=== PATIENT | male | born 1945 | race Caucasian/White ===

== ENCOUNTER → 2021-06-13 | Outpatient (CLI) | payer MEDICARE ==
[~2021-06-13] MED LIST: BILB100C PO; FENO48TA16 PO; FURO40TA4 PO; GABA300C18 PO; HYDR-2761 PO; INSU100V37 SQ; IRON PO; MECO10005 PO; METO25TA4 PO; MONT10TA49 PO; OMEG-152 PO; TAMS0.4C97 PO; TRAM50TA PO
[2021-06-13 14:02] LABS: HEMATOCRIT 38.4 % (39.0-53.0); HEMOGLOBIN 12.5 g/dL (13.0-17.5); RED BLOOD COUNT 4.23 x10^6/uL (4.30-5.70); RED CELL DISTRIBUTION WIDTH 14.8 % (11.5-14.5); WHITE BLOOD COUNT 6.1 x10^3/uL (4.0-11.0)
[2021-06-13 14:18] LABS: ALBUMIN/GLOBULIN RATIO 0.9 (1.0-1.7); CALCIUM 8.5 mg/dL (8.5-10.1); CREATININE 1.7 mg/dL (0.7-1.3); GFR 39.3; POTASSIUM 4.8 mmol/L (3.5-5.1); TOTAL BILIRUBIN 0.4 mg/dL (0.2-1.0); TOTAL PROTEIN 6.2 g/dL (6.4-8.2)
[2021-06-14 02:09] LABS: HEMOGLOBIN A1C 7.9 % (4.8-5.6)
== END ==
LOC: SURGPAT 12:28
PROVIDERS: ATTEND Neurological Surgery
DX: Z01.818 Encounter for other preprocedural examination (principal); M48.062 Spinal stenosis, lumbar region with neurogenic claudication; M51.16 Intervertebral disc disorders with radiculopathy, lumbar region
CPT/HCPCS: 36415; 80053; 83036; 85027; 87641

== ENCOUNTER 2021-06-19 10:13 | Observation (INO) | payer MEDICARE ==
[2021-06-13 13:18] VITALS: BP 165/70
[~2021-06-19] VITALS: Ht 172.7 cm; Wt 100.0 kg
[2021-06-19] VITALS (10 sets, daily range): BP systolic 120–144; BP diastolic 69–83
[~2021-06-19 10:13] MED LIST changes: -HYDR-2761 PO; +HYDROmorphone 2 MG/ML VIAL IVP PRN; +IV RINGERS,LACTATED 1000ML 1,000 ML IV SCH; +LIDOCAINE 2% PF 5 ML VIAL. ONE; +PHENYLEPHRINE 10 MG/ML VIAL. ONE; +PROCHLORPERAZINE 10 MG/2 ML VIAL. IVP PRN; +PROPOFOL 10 MG/ML (20ML) VIAL. IV ONE; +PROPOFOL 50 ML IV ONE; +REMIFENTANIL 2 MG VIAL. IV ONE; +ROCURONIUM 50 MG/5 ML VIAL. ONE; +SUCCINYLCHOLINE 200 MG/10 ML VIAL. ONE; +ceFAZolin SODIUM 1 GM in IV NORMAL SALINE 1000ML BAG 1,000 ML IRR ONE; +fentaNYL PF VIAL 100 MCG/2 ML VIAL IVP PRN; +fentaNYL PF VIAL 100 MCG/2 ML VIAL ONE
[2021-06-19] MEDS ORDERED: GELATIN SPONGE SIZE 100. ONE (10:15)
[2021-06-19] MEDS ORDERED: THROMBIN TOPICAL 20,000 UNIT SPRAY.SYRN KIT TP ONE (10:15)
[2021-06-19] MEDS ORDERED: KETOROLAC 60 MG/2 ML VIAL. ONE (10:15)
[2021-06-19] MEDS ORDERED: BUPIVACAINE-EPI 0.5% 30 ML VIAL KIT. ONE (10:15)
[2021-06-19] MEDS ORDERED: INSULIN LISPRO 100 UNIT/ML 3ML VIAL for OP,RR ONLY. SQ PRN (11:00)
[2021-06-19 11:07] LABS: BASO % 1 % (0-3); EOS # 0.4 x10^3/uL (0.0-0.7); EOS % 6 % (0-3); HEMOGLOBIN 12.7 g/dL (13.0-17.5); LYMPH # 1.2 x10^3/uL (1.0-4.8); LYMPH % 17 % (24-48); MEAN CORPUSCULAR HEMOGLOBIN 30 pg (25-35); MEAN CORPUSCULAR HGB CONC 33 g/dL (31-37); MEAN CORPUSCULAR VOLUME 90 fL (79-100); MONO # 0.5 x10^3/uL (0.0-1.1); MONO % 7 % (0-9); NEUT # 4.9 x10^3/uL (1.8-7.7); NEUT % 70 % (31-73); PLATELET COUNT 219 x10^3/uL (140-400); RED BLOOD COUNT 4.25 x10^6/uL (4.30-5.70); RED CELL DISTRIBUTION WIDTH 14.8 % (11.5-14.5)
[2021-06-19] MEDS ORDERED: GLYCOPYRROLATE 1 MG/5 ML VIAL. ONE (11:13)
[2021-06-19] MEDS: IV NORMAL SALINE 1000ML BAG 1,000 ML IV SCH ×2 (11:14→13:28)
[2021-06-19] MEDS ORDERED: ePHEDrine PF IN SALINE 50 MG/10 ML SYRINGE. IV ONE (11:16)
[2021-06-19] MEDS ORDERED: INSULIN LISPRO 100 UNIT/ML 3ML VIAL for OP,RR ONLY. SQ ONE (11:25)
[2021-06-19] MEDS ORDERED: SEVOFLURANE > 120 MINUTES. IH ONE (11:38)
[2021-06-19] MEDS ORDERED: DEXTROSE 50% 25 GM / 50ML DISP.SYRIN. IV ONE (11:38)
[2021-06-19] MEDS ORDERED: ONDANSETRON PF 4 MG/2 ML VIAL. ONE (11:53)
[2021-06-19] MEDS ORDERED: NEOSTIGMINE METHYLSULFATE 5 MG/5 ML SYRINGE. ONE (11:53)
[2021-06-19] MEDS ORDERED: PROPOFOL 50 ML IV ONE (11:55)
--- NOTE | 2021-06-19 16:14 | PREOP HP ---
DATE OF SERVICE: 06/19/2021 HISTORY OF PRESENT ILLNESS: The patient is a pleasant 75-year-old man who was scheduled for lumbar spine surgery in December, but this was postponed because of an infected wound on his foot. He did undergo amputation of toes on his left foot. He would like now to proceed with lumbar surgery. He has low back pain with walking and standing. The pain can reach 10/10. It has been present for years and is slowly worsening. He said leaning forward or sitting can help him. He rarely takes Tylenol. He had lumbar epidural steroid injections as well as chiropractic treatment with no significant benefit. CURRENT MEDICATIONS: Tylenol, tamsulosin, Singulair, atorvastatin, metoprolol, metformin, furosemide, fenofibrate, Lantus, gabapentin. PAST MEDICAL HISTORY: Arthritis, prostate cancer, PA, kidney stones, radiation treatments, wound infection/cellulitis, diabetes, sleep apnea, peripheral vascular disease, coronary artery disease, chronic kidney disease. PAST SURGICAL HISTORY: Cholecystectomy, left great toe amputation, prostate surgery, tonsil and adenoidectomy, cardiac stents. FAMILY HISTORY: Cancer, heart disease, PA. SOCIAL HISTORY: Retired, , nonsmoker, does not drink alcohol. ALLERGIES: IV CONTRAST. REVIEW OF SYSTEMS: A 12-point review of systems was performed and is noncontributory except that mentioned above. PHYSICAL EXAMINATION: GENERAL: Alert, pleasant, in no acute distress. HEENT: Head is normocephalic, atraumatic. SKIN: Warm and dry. MUSCULOSKELETAL: Lumbar paraspinal muscle bulk is normal, restricted range of motion of the lumbar spine, [id number] tenderness of the lower lumbar spine with palpation, normal range of motion of the lower extremities bilaterally. EXTREMITIES: No clubbing, cyanosis or edema. NEUROLOGIC: Alert and oriented x3. Strength is 5/5 in the lower extremities, sensory was intact to light touch in the lower extremities bilaterally, reflexes were present and symmetric in the lower extremities bilaterally, negative straight leg raising bilaterally, leans forward with walking, can only stand a few minutes before he had to sit because of increased back pain. IMAGING: I reviewed a lumbar MRI scan. Primary problem is at L4-L5. There is significant hypertrophic facet disease bilaterally with severe lateral recess stenosis along with disk bulging and disk herniation, which extends inferiorly for several millimeters. ASSESSMENT AND PLAN: I continue to believe the disk bulging and hypertrophic facet disease along with severe lateral stenosis is the source of his neurogenic claudication type symptoms. My recommendation is that he undergo bilateral lumbar microdecompressive surgery at L4-L5. He understands the surgery and the risk as well as the expected postoperative course. He understands that he must be cleared by Cardiology and then we will make arrangements for the surgery. BETTYE DR: Dalia TID: [id number]
[2021-06-19] MEDS ORDERED: traMADol 50 MG TABLET PO PRN (16:15)
[2021-06-19] MEDS ORDERED: 0.9 % SODIUM CHLORIDE 10 ML DISP.SYRIN. IV PRN (16:15)
[2021-06-19] MEDS ORDERED: DEXTROSE 50% 25 GM / 50ML DISP.SYRIN. IV PRN (16:15)
[2021-06-19] MEDS ORDERED: fentaNYL PF VIAL 100 MCG/2 ML VIAL IVP PRN (16:15)
[2021-06-19] MEDS ORDERED: HYDROcodone/APAP 5/325MG 1 TAB TABLET PO PRN (16:15)
[2021-06-19] MEDS ORDERED: diphenhydrAMINE HCL 25 MG CAPSULE PO PRN (16:15)
[2021-06-19] MEDS ORDERED: NALOXONE 0.4 MG/ML VIAL. IV PRN (16:15)
[2021-06-19] MEDS ORDERED: MAG HYDROX/ALUMINUM HYD/SIMETH 30 ML ORAL.SUSP PO PRN (16:15)
[2021-06-19] MEDS ORDERED: MAGNESIUM HYDROXIDE 2,400 MG/30 ML ORAL.SUSP. PO PRN (16:15)
[2021-06-19] MEDS ORDERED: CALCIUM CARBONATE 500 MG TAB.CHEW PO PRN (16:15)
[2021-06-19] MEDS ORDERED: ACETAMINOPHEN 325 MG TABLET. PO PRN (16:15)
[2021-06-19] MEDS ORDERED: MORPHINE SULFATE 2 MG/ML INJ. ONE (16:21)
[2021-06-19] MEDS: MORPHINE SULFATE 2 MG/ML INJ. IVP PRN ×2 (16:25→16:38)
[2021-06-19] MEDS ORDERED: HYDROmorphone 2 MG/ML VIAL ONE (16:42)
[2021-06-19] MEDS ORDERED: POTASSIUM CL 20MEQ-0.45% NACL 1,000 ML IV SCH (17:00)
--- NOTE | 2021-06-19 17:25 | NUR ---
Arrived to unit by bed from PACU. Awake and oriented x's 4. No c/o at this time rating pain at "2". IVF's intact and infusing. KRISTYN's and KOLE's on bilaterally. Moves all extremities without difficulty. Oriented to room and controls. Side rails up x's 2 with call light in reach. Dinner tray ordered. Cont. monitor.
--- NOTE | 2021-06-19 18:03 | OP ---
DATE OF SURGERY: 06/19/2021 PREOPERATIVE DIAGNOSES: Severe lumbar spinal stenosis, lateral recess stenosis, L4-5, with bilateral radiculopathy and neurogenic claudication. POSTOPERATIVE DIAGNOSES: Severe lumbar spinal stenosis, lateral recess stenosis, L4-5, with bilateral radiculopathy and neurogenic claudication. OPERATION PERFORMED: Bilateral hemilaminotomies with decompression of dura and nerve root, L4-5. The operation was done with EMG monitoring, SSEP monitoring, fluoroscopy, microscopic dissection. SURGEON: Malachi Hayes M.D. MANAGER MERCHANDISING: ANAND Shah, assisted during the surgery. She assisted with exposure, the microdecompression bilaterally as well as the closure. SPECIMEN: Decompression. OPERATIVE INDICATIONS: The patient is a pleasant 75-year-old who developed severe intractable back and bilateral lower extremity symptoms, which failed conservative measures. On imaging studies, he had severe stenosis at L4-5 with a great deal of encroachment from posterolaterally into the spinal canal. I recommended bilateral lumbar microdecompressive surgery. I spoke with him about the surgery, the risks, technique and the expected postoperative course and he wished to go ahead. DESCRIPTION OF PROCEDURE: Following general endotracheal anesthesia, the patient was positioned prone on a Michael table. Lumbar region prepped and draped in standard fashion. KRISTYN hose and AV impulse boots were applied for DVT prophylaxis. The microscope was draped, fluoroscopy was draped and brought in the field. Monitoring was established. Ancef 2 grams given less than 1 hour prior to initiation of the surgery. Using fluoroscopic guidance, a midline incision was made directly over the L4-5 interspace. I dissected down through skin and subcutaneous tissue, reflected the paraspinal muscles and placed a [place] microdisk retractor. I brought in the microscope, and with microscopic technique, burred down a generous hemilaminotomy and a partial foraminotomy. I then peeled away thickened ligamentum flavum and large bone spurs, which were encroaching it from posterolaterally. These were removed. Then, I had noted that the L5 roots appeared to be conjoined, it was extended gradually. I fully decompressed the entire region. I irrigated with antibiotic solution. I obtained excellent hemostasis. I used bone wax on the bony edges. I removed the retractor on the left side. We obtained hemostasis and I went to the right side. I placed retractors on the right side after gaining exposure. In the same fashion, I drilled a generous hemilaminotomy. I peeled away thickened ligamentum flavum. I peeled out the encroaching bone spurs. I performed a partial foraminotomy. At this point, the dura was well visualized and under no significant pressure, I irrigated with antibiotic solution. I then closed the wound in layers after obtaining excellent hemostasis with absorbable sutures. The skin was closed with a 4-0 subcuticular stitch. I was quite pleased with the surgery. SHARON DR: Corinne TID: [id number] NIGHAT
[2021-06-19] MEDS ORDERED: INSULIN GLARGINE SYRINGE. SQ SCH (21:00)
[2021-06-19] MEDS ORDERED: DOCUSATE SODIUM 100 MG CAPSULE. PO SCH (21:00)
[2021-06-19] MEDS: METOPROLOL TART IMMED RELEASE 25 MG TABLET. PO SCH (21:00)
[2021-06-19] MEDS ORDERED: MONTELUKAST SODIUM 10 MG TABLET. PO SCH (21:00)
[2021-06-19] MEDS ORDERED: BILBERRY PO SCH (21:00)
[2021-06-19] MEDS: OMEGA-3 FATTY ACIDS/FISH OIL 1,000 MG CAPSULE. PO SCH (21:54)
[2021-06-19] MEDS: GABAPENTIN 300 MG CAPSULE. PO SCH (21:54)
[2021-06-19] MEDS: HYDROcodone/APAP 5/325MG 1 TAB TABLET PO PRN (21:55)
[2021-06-20] MEDS: HYDROcodone/APAP 5/325MG 1 TAB TABLET PO PRN ×4 (02:26→16:04)
[2021-06-20 03:14] VITALS: BP 117/72
--- NOTE | 2021-06-20 03:15 | NUR ---
Lortab given for c/o back "soreness." Blood is pooling under transparent film dressing. ABD taped over it. Ambulates with out difficulty.
[2021-06-20 07:00] VITALS: BP 151/58
[2021-06-20] MEDS: OMEGA-3 FATTY ACIDS/FISH OIL 1,000 MG CAPSULE. PO SCH (07:50)
[2021-06-20] MEDS: GABAPENTIN 300 MG CAPSULE. PO SCH (07:51)
[2021-06-20] MEDS: METOPROLOL TART IMMED RELEASE 25 MG TABLET. PO SCH (07:53)
[2021-06-20] MEDS ORDERED: FENOFIBRATE 54 MG TABLET. PO SCH (09:00)
[2021-06-20] MEDS ORDERED: CYANOCOBALAMIN (VITAMIN B-12) 1,000 MCG TABLET. PO SCH (09:00)
[2021-06-20] MEDS ORDERED: FUROSEMIDE 40 MG TABLET. PO SCH (09:00)
[2021-06-20] MEDS ORDERED: TAMSULOSIN 0.4 MG CAP.ER.24H. PO SCH (09:00)
[2021-06-20 11:00] VITALS: BP 120/41
[2021-06-20] MEDS ORDERED: HYDR-2761 PO (13:55)
--- NOTE | 2021-06-20 13:58 | SNU/HH DC ---
DISCHARGE WITH HOME HEALTH DISCHARGE INFORMATION: Discharge Date: Jun 20, 2021 Final Diagnosis: m48.062 lumbar stenosis Condition on Discharge: Stable CODE STATUS: Code Status: Full HOME HEALTH: Face to Face: I certify this patient is under my care and that I, or a nurse practitioner or physician's assistant terminal manager working with me, had a face to face encounter that meets the physician face to face encounter requirements with this patient on 06/20/21 Medical Complications: DM, HTN Fpc For: Assess & Educate Safety, Medication Management, Pain Management RN For Eval/Treatment: Yes Physical Therapy For: Evalulation/Treatment Pt Meets Homebound Status: Limited distance walking POST DISCHARGE ORDERS: Activity Instructions for Disc: Activity as tolerated, Avoid exertion, Other, see below (no lifting > 10 lbs) DIET AFTER DISCHARGE: ADA Wound/Incision Care: Ice to area for comfort Other wound/incision instructi: dressing changes daily as needed FOLLOW-UP: PCP to follow Home Health: Dr. Mendoza [phone] Follow up with: Dr. Mendoza [phone] CERTIFICATION STATEMENT: Certification Statement: Certification Statement: Based on the above finding, I certify that this patient is confined to the home and needs intermittent longterm care, physical therapy and/or speech therapy, or continues to need occupational therapy.~ This patient is under my care, and I have initiated the establishment of the plan of care.~ This patient will be followed by myself or a community physician who will periodically review the plan of care. Home Meds Reported Medications Tramadol Hcl (TRAMADOL HCL) 50 Mg Tablet, 50 MG PO DAILY PRN for PAIN, TAB 0 Refills 06/13/21 [Iron] No Conflict Check, 65 MG PO DAILY for 06/13/21 Mecobalamin (B12 Active) 1,000 Mcg Tab.chew, 500 MCG PO DAILY for , TAB.CHEW 06/13/21 Aubrey-3/Dha/Epa/Fish Oil (FISH OIL 1,000 MG SOFTGEL) 1 Each Capsule, 1 CAP PO BID for for 30 Days, #60 CAP 0 Refills 06/13/21 Bilberry (BILBERRY) 100 Mg Capsule, 100 MG PO BID for , CAP 06/13/21 Insulin Degludec (Tresiba) 100 Unit/1 Ml Vial, 56 UNIT SQ QHS for , EACH 06/13/21 Gabapentin (GABAPENTIN ) 300 Mg Capsule, 300 MG PO BID for NEUROGENIC PAIN, CAP 06/13/21 Montelukast Sodium (MONTELUKAST SODIUM TABLET ) 10 Mg Tablet, 10 MG PO HS for FOR ASTHMA, TAB 0 Refills 06/13/21 Furosemide (FUROSEMIDE) 40 Mg Tablet, 1 TAB PO DAILY for , #30 TAB 5 Refills 06/13/21 Metoprolol Tartrate (METOPROLOL TARTRATE) 25 Mg Tablet, 1 TAB PO BID for , #180 TAB 1 Refill 06/13/21 Fenofibrate Nanocrystallized (TRICOR) 48 Mg Tablet, 1 TAB PO DAILY for , #30 TAB 5 Refills 06/13/21 Tamsulosin Hcl (FLOMAX) 0.4 Mg Cap.er.24h, 1 CAP PO DAILY for , #30 CAP 11 Refills 06/13/21 LESVIA MENDOZA MD Jun 20, 2021 13:58
--- NOTE | 2021-06-20 16:05 | NUR ---
Discharge instructions given. Answered questions and concerns. Verbalized understanding. Pt discharged home with home health. Escorted out by w/c. Accompanied by .
--- NOTE | 2021-06-21 17:12 | DS ---
DATE OF DISCHARGE: 06/20/2021 DISCHARGE DIAGNOSES: Lumbar spinal stenosis, lateral recess stenosis, L4-L5 with bilateral radiculopathy and neurogenic claudication. OPERATION PERFORMED: Bilateral hemilaminotomies with decompression of dura and nerve root, L4-L5. HISTORY OF PRESENT ILLNESS: The patient is a pleasant 75-year-old who developed intractable back and bilateral lower extremity symptoms, which failed to improve with conservative measures. On imaging studies, he had severe stenosis at L4-5 with a great deal of encroachment from posterolaterally into the spinal canal. I recommended lumbar microdecompressive surgery bilaterally. I spoke with him about the surgery, the risks, the technique and expected postoperative course, and he wished to go ahead. HOSPITAL COURSE: He was admitted to the floor postoperatively where he did well. He was up ambulating in the room and in the halls. Physical therapy was initiated and instruction was given to him regarding his activities. His pain is well controlled and he is in good condition to discharge home with home health services. DISCHARGE MEDICATIONS: He will resume his medications per the MRAD. DISCHARGE INSTRUCTIONS: He was instructed regarding incision care, activity restrictions and expectations for the next several weeks. He will follow up in our office in 2 weeks. He understands to call with any questions or concerns. GLADYS DR: Dalia TID: [phone] [facility]
--- NOTE | 2021-06-25 17:27 | PATHOLOGY ---
[facility] Accession Number: [id number] . 01 Material submitted: . vertebral column - LUMBAR AND DECOMPRESSION. Modifiers: LUMBAR . 01 Clinical history: . HERNIATED DISK WITH RADICULOPATH LUMBAR STENOSIS LUMBAR MICRODECOMPRESSION MICRODISCECTOMY L4-5 BILAT LUMBAR STENOSIS HERNIATED . 02 Diagnosis: Bone and soft tissue "L4-5", excision: - Fragments of reactive/degenerative hyaline cartilage. - Fragments of unremarkable bony trabeculae. - Negative for malignancy. (MLK/db; 06/24/2021) LBQ 06/24/2021 1757 Local . 02 Electronically signed: . Sonny Rodriguez MD, Pathologist NPI- [id number] . 01 Gross description: . Received in formalin labeled "Scheib, Regis, lumbar decompression" is a 5.0 x 4.0 x 1.5 cm aggregate of hernández-brown friable bone and soft tissue fragments. [employer] Dispatcher tissue is submitted in cassette A1 following decalcification. [place]21[place] [facility] 06/22/2021 0927 Local . 02 Pathologist provided ICD-10: M51.36 . 02 CPT . 773316, [id number] Specimen Comment: A courtesy copy of this report has been sent to [phone] Specimen Comment: Report sent to Performed at: [facility] [address], [place] [id number] MD Akash Connelly MD Phone: [phone] Performed at: 02 [facility] [address] [place], [place] [id number] MD César Obrien MD Phone: [phone]
== END 2021-06-20 16:05 | disposition home or self-care (01) ==
LOC: SURG 10:13 → 4 NORTH 16:04
PROVIDERS: ADMIT Neurological Surgery; ATTEND Neurological Surgery
DX: M48.062 Spinal stenosis, lumbar region with neurogenic claudication (principal); M19.90 Unspecified osteoarthritis, unspecified site; I25.2 Old myocardial infarction; I25.10 Atherosclerotic heart disease of native coronary artery without angina pectoris; I73.9 Peripheral vascular disease, unspecified; E11.51 Type 2 diabetes mellitus with diabetic peripheral angiopathy without gangrene; M47.819 Spondylosis without myelopathy or radiculopathy, site unspecified; M54.16 Radiculopathy, lumbar region; M77.9 Enthesopathy, unspecified; N28.9 Disorder of kidney and ureter, unspecified; Z87.442 Personal history of urinary calculi; Z85.46 Personal history of malignant neoplasm of prostate; Z90.49 Acquired absence of other specified parts of digestive tract; Z95.1 Presence of aortocoronary bypass graft; Z79.899 Other long term (current) drug therapy; Z98.890 Other specified postprocedural states; Z79.4 Long term (current) use of insulin; Z79.84 Long term (current) use of oral hypoglycemic drugs; Z95.5 Presence of coronary angioplasty implant and graft
CPT/HCPCS: 36415; 63030; 82962; 85025; 97116; 97162; 97530; A4213; A4364; A4556; A4930; A6254; A6258; G0378; G0379; J0330; J0690; J1170; J1815; J1885; J2270; J2370; J2405; J2704; J2710; J3010; J3490; J7030; 76000; A4222; A4223; A4657